=== PATIENT | female | born 1925 | race Asian ===

== ENCOUNTER 2016-04-16 11:20 | Inpatient (IN) | payer MEDICARE, MEDICAID ==
[~2016-04-16] VITALS: Ht 154.9 cm; Wt 61.4 kg
[~2016-04-16 11:20] MED LIST: BISA10SU8 PR; DSSL PEG; HEPA500014 SQ; HYDR12.54 PEG; LEVA0.6319 IH; METO-323 PEG; MIRALAX PEG; MULT-248 PEG; PANT40TA PEG; VIT500LI PEG; WARF3TAB29 PO
[2016-04-16 11:51] LABS: GLUCOSE,POINT OF CARE 143 MG/DL (70-110)
[2016-04-16 12:23] LABS: BASOPHILS % (AUTO) 0.2 % (0.0-2.0); EOSINOPHILS % (AUTO) 0 % (1.0-6.0); HEMATOCRIT 32.1 % (36-46); HEMOGLOBIN 10.1 g/dL (12.0-16.0); LYMPHOCYTES # (AUTO) 1.1 K/uL (1.0-4.8); LYMPHOCYTES % (AUTO) 3.6 % (22.0-44.0); MEAN CORPUSCULAR HEMOGLOBIN 29.3 pg (26.0-34.0); MEAN CORPUSCULAR HGB CONC 31.4 G/dL (31.0-37.0); MEAN CORPUSCULAR VOLUME 93 fL (80-100); MONOCYTES # (AUTO) 2.2 K/uL (0.1-1.0); MONOCYTES % (AUTO) 7.5 % (2.0-9.0); PLATELET COUNT (AUTO) 623 K/uL (150-450); RED BLOOD CELL COUNT(AUTO) 3.44 MIL/uL (4.00-5.20); RED CELL DISTRIBUTION WIDTH 14.8 % (11.5-14.5); WHITE BLOOD COUNT (AUTO) 29.3 K/uL (4.5-11.0)
[2016-04-16 12:24] LABS: NEUTROPHILS % (AUTO) 88.7 % (40.0-70.0)
[2016-04-16 12:40] LABS: ANION GAP 4 mmol/L (8-16); CALCIUM, TOTAL 9.1 mg/dL (8.8-10.5); CARBON DIOXIDE 35 mmol/L (22-29); CHLORIDE 94 mmol/L (98-107); GLOMERULAR FILTR. RATE CALC > 60 mL/min (>60); POTASSIUM 4.5 mmol/L (3.5-5.1); SODIUM SERUM 133 mmol/L (136-145); UREA NITROGEN, BLOOD 48 mg/dL (7-18)
[2016-04-16 12:42] LABS: RBC MORPHOLOGY COMMENT ABNORMAL RBC MORPH
[2016-04-16 12:46] LABS: ALANINE AMINOTRANSFERASE 20 U/L (12-78); ALBUMIN 2.5 g/dL (3.4-5.0); ASPARTATE AMINOTRANSFERASE 30 U/L (15-37); BILIRUBIN,TOTAL 0.3 mg/dL (0.1-1.0); TOTAL PROTEIN, SERUM 7.1 g/dL (6.4-8.2)
[2016-04-16 12:48] LABS: LACTIC ACID 1.1 mmol/L (0.4-2.0)
[2016-04-16] MEDS ORDERED: CefTRIAXone 1 GM/DEXTROSE 50 ML IV ONE (13:30)
[2016-04-16] MEDS ORDERED: AZITHROMYCIN 500 MG/NS 250 ML IV ONE (13:30)
[2016-04-16] MEDS ORDERED: FUROSEMIDE 20 MG/2 ML VIAL IVP ONE (13:30)
[2016-04-16 16:41] VITALS: BP 150/78
[2016-04-16 18:42] LABS: ABG A-A DIFF O2 16.8 mmHg (10-20.0); ABG BASE EXCESS 5.8 mmol/L (-2.0-3.0); ABG HCO3 28.4 mmol/L (22.0-26.0); ABG OXYHEMOGLOBIN 94.1 % (94.0-100.0); ABG PCO2 62 mmHg (35-45); ABG PH 7.331 (7.35-7.450); TEMPERATURE, FAHRENHEIT, BG 98.2 FAHREN (96.0-98.6)
[2016-04-16 18:43] LABS: ALLEN TEST, BLOOD GAS POS
[2016-04-16] MEDS ORDERED: MORPHINE SULFATE 4 MG/ML SYRINGE IVP PRN (18:45)
[2016-04-16] MEDS ORDERED: ZOLPIDEM TARTRATE 5 MG TABLET PEG PRN (18:45)
[2016-04-16] MEDS ORDERED: IPRATROPIUM BROMIDE 0.5 MG/2.5 ML NEB SOLUTION NEB PRN (18:45)
[2016-04-16] MEDS ORDERED: HYDROCODONE/ACETAMINOPHEN 5-325 MG TABLET PEG PRN (18:45)
[2016-04-16] MEDS ORDERED: MAGNESIUM HYDROXIDE SUSPENSION 30 ML UDCUP PEG PRN (18:45)
[2016-04-16] MEDS ORDERED: BISACODYL 10 MG RECTAL RECTAL SUPPOSITORY PR PRN (18:45)
[2016-04-16] MEDS ORDERED: ALBUTEROL SULFATE 2.5 MG/0.5 ML NEB SOLUTION NEB PRN (18:45)
[2016-04-16] MEDS ORDERED: ONDANSETRON HCL 4 MG/2 ML VIAL IVP PRN (18:45)
[2016-04-16 19:00] VITALS: BP 114/75
[2016-04-16] MEDS ORDERED: DEXTROSE 50%-WATER 25 GM/50 ML SYRINGE IVP PRN (19:15)
[2016-04-16 19:27] LABS: BASOPHILS % (AUTO) 0.1 % (0.0-2.0); EOSINOPHILS % (AUTO) 0 % (1.0-6.0); HEMATOCRIT 34.6 % (36-46); LYMPHOCYTES # (AUTO) 0.5 K/uL (1.0-4.8); LYMPHOCYTES % (AUTO) 1.6 % (22.0-44.0); MEAN CORPUSCULAR HEMOGLOBIN 29.6 pg (26.0-34.0); MEAN CORPUSCULAR HGB CONC 31.9 G/dL (31.0-37.0); MEAN CORPUSCULAR VOLUME 93 fL (80-100); MONOCYTES # (AUTO) 0.4 K/uL (0.1-1.0); MONOCYTES % (AUTO) 1.3 % (2.0-9.0); NEUTROPHILS # (AUTO) 29.1 K/uL (1.8-7.7); PLATELET COUNT (AUTO) 644 K/uL (150-450); RED BLOOD CELL COUNT(AUTO) 3.73 MIL/uL (4.00-5.20)
[2016-04-16 19:40] LABS: ANION GAP 6 mmol/L (8-16); CARBON DIOXIDE 36 mmol/L (22-29); CHLORIDE 94 mmol/L (98-107); GLOMERULAR FILTR. RATE CALC > 60 mL/min (>60); POTASSIUM 4.5 mmol/L (3.5-5.1); SODIUM SERUM 136 mmol/L (136-145); UREA NITROGEN, BLOOD 46 mg/dL (7-18)
[2016-04-16 19:45] LABS: ALANINE AMINOTRANSFERASE 20 U/L (12-78); ALBUMIN 2.5 g/dL (3.4-5.0); ASPARTATE AMINOTRANSFERASE 31 U/L (15-37); BILIRUBIN,TOTAL 0.2 mg/dL (0.1-1.0); TOTAL PROTEIN, SERUM 7.4 g/dL (6.4-8.2)
[2016-04-16 19:56] LABS: RBC MORPHOLOGY COMMENT ABNORMAL RBC MORPH
[2016-04-16] MEDS: METOPROLOL TARTRATE 25 MG TABLET PEG SCH (21:09)
[2016-04-16] MEDS: DOCUSATE SODIUM 100 MG CAPSULE PEG SCH (21:09)
[2016-04-16] MEDS: INSULIN DETEMIR 100 UNITS/ML SQ SCH (23:06)
[2016-04-16] MEDS: INSULIN REGULAR, HUMAN 100 UNITS/ML SQ PRN (23:07)
[2016-04-16 23:34] VITALS: BP 128/72
[2016-04-17 02:31] LABS: INFLUENZA TYPE B NEGATIVE FOR TYPE B (NEGATIVE)
[2016-04-17] MEDS ORDERED: LEVA1.25 NEB ×2 (03:08→03:10)
[2016-04-17] MEDS ORDERED: RIVA20TA PEG (03:08)
[2016-04-17] MEDS ORDERED: VIT D3 PEG (03:08)
[2016-04-17] MEDS ORDERED: INSLAN SQ (03:08)
[2016-04-17] MEDS ORDERED: MOM30 PO (03:10)
[2016-04-17] MEDS ORDERED: ACET-784 PO (03:23)
[2016-04-17] MEDS ORDERED: MUPI1OIN5 TP (03:35)
[2016-04-17] MEDS ORDERED: FE PR (03:35)
[2016-04-17] MEDS ORDERED: NYST30PO11 TP (03:35)
[2016-04-17] MEDS ORDERED: DEXT1DRO OU (03:47)
[2016-04-17 04:24] VITALS: BP 150/71
[2016-04-17] MEDS: INSULIN REGULAR, HUMAN 100 UNITS/ML SQ PRN ×3 (05:58→17:30)
[2016-04-17 07:30] LABS: EOSINOPHILS % (AUTO) 0 % (1.0-6.0); HEMATOCRIT 31.8 % (36-46); HEMOGLOBIN 10.2 g/dL (12.0-16.0); LYMPHOCYTES # (AUTO) 0.9 K/uL (1.0-4.8); LYMPHOCYTES % (AUTO) 3.6 % (22.0-44.0); MEAN CORPUSCULAR HEMOGLOBIN 29.9 pg (26.0-34.0); MEAN CORPUSCULAR HGB CONC 32.1 G/dL (31.0-37.0); MEAN CORPUSCULAR VOLUME 93 fL (80-100); MONOCYTES % (AUTO) 7.9 % (2.0-9.0); NEUTROPHILS # (AUTO) 22.1 K/uL (1.8-7.7); PLATELET COUNT (AUTO) 576 K/uL (150-450); RED BLOOD CELL COUNT(AUTO) 3.42 MIL/uL (4.00-5.20); RED CELL DISTRIBUTION WIDTH 14.6 % (11.5-14.5)
[2016-04-17 07:33] LABS: NEUTROPHILS % (AUTO) 88.5 % (40.0-70.0)
[2016-04-17 07:38] VITALS: BP 142/70
[2016-04-17 07:42] LABS: ABG A-A DIFF O2 34.2 mmHg (10-20.0); ABG BASE EXCESS 7.4 mmol/L (-2.0-3.0); ABG HCO3 30.6 mmol/L (22.0-26.0); ABG OXYHEMOGLOBIN 96.6 % (94.0-100.0); ABG PCO2 43 mmHg (35-45); ABG PH 7.476 (7.35-7.450)
[2016-04-17 07:44] LABS: IPAP, BG 16 cm H2O
[2016-04-17 08:18] LABS: ALANINE AMINOTRANSFERASE 19 U/L (12-78); ALBUMIN 2.3 g/dL (3.4-5.0); ANION GAP 5 mmol/L (8-16); ASPARTATE AMINOTRANSFERASE 27 U/L (15-37); BILIRUBIN,TOTAL 0.2 mg/dL (0.1-1.0); CALCIUM, TOTAL 8.5 mg/dL (8.8-10.5); CARBON DIOXIDE 36 mmol/L (22-29); CHLORIDE 96 mmol/L (98-107); CREATININE 0.79 mg/dL (0.60-1.30); GLOMERULAR FILTR. RATE CALC > 60 mL/min (>60); POTASSIUM 4.1 mmol/L (3.5-5.1); RBC MORPHOLOGY COMMENT ABNORMAL RBC MORPH; SODIUM SERUM 137 mmol/L (136-145); TOTAL PROTEIN, SERUM 6.6 g/dL (6.4-8.2); UREA NITROGEN, BLOOD 49 mg/dL (7-18)
[2016-04-17 08:21] LABS: PROCALCITONIN (PCT) 0.48 ng/mL (<0.50)
[2016-04-17] MEDS: DOCUSATE SODIUM 100 MG CAPSULE PEG SCH ×2 (09:00→20:45)
[2016-04-17] MEDS: METOPROLOL TARTRATE 25 MG TABLET PEG SCH ×2 (10:25→20:45)
[2016-04-17] MEDS: PANTOPRAZOLE SODIUM 40 MG/VIAL IVP SCH (10:27)
[2016-04-17 11:49] VITALS: BP 165/98
[2016-04-17] MEDS: CefTRIAXone 1 GM/DEXTROSE 50 ML IV SCH ×2 (13:00→14:32)
[2016-04-17] MEDS ORDERED: SODIUM CHLORIDE 0.9% 250 ML IV ONE (13:08)
[2016-04-17] MEDS: HydrALAZINE HCL 20 MG/ML VIAL IVP PRN ×2 (13:12→21:55)
[2016-04-17 14:30] VITALS: BP 169/95
[2016-04-17] MEDS: AZITHROMYCIN 500 MG/NS 250 ML IV SCH (14:42)
[2016-04-17] MEDS: ACETAMINOPHEN 650 MG/20.3 ML SOLUTION UDCUP PEG PRN (14:42)
[2016-04-17] MEDS ORDERED: DIGOXIN 250 MCG/ML 2 ML AMP IVP ONE (15:15)
[2016-04-17] MEDS ORDERED: SODIUM CHLORIDE 0.9% 500 ML IV ONE (15:45)
[2016-04-17 16:00] VITALS: BP 155/86
[2016-04-17 18:06] LABS: GLUCOSE COMMENT 1 Received Meds; GLUCOSE,POINT OF CARE 195 MG/DL (70-110)
[2016-04-17 18:17] LABS: GLUCOSE COMMENT 1 Received Meds; GLUCOSE,POINT OF CARE 200 MG/DL (70-110)
[2016-04-17 18:17] LABS: GLUCOSE COMMENT 1 Received Meds; GLUCOSE,POINT OF CARE 191 MG/DL (70-110)
[2016-04-17 18:17] LABS: GLUCOSE,POINT OF CARE 151 MG/DL (70-110)
[2016-04-17 20:00] VITALS: BP 156/77
[2016-04-17] MEDS ORDERED: INFLUENZA VIRUS VACCINE QVS 2016-17 (3YR+)/PF 60 MCG/0.5 ML SYRINGE IM ONE (20:00)
[2016-04-17] MEDS: INSULIN DETEMIR 100 UNITS/ML SQ SCH (20:45)
[2016-04-17] MEDS ORDERED: FUROSEMIDE 20 MG/2 ML VIAL IVP SCH (21:00)
[2016-04-18] VITALS: BP 109/37
[2016-04-18] MEDS: INSULIN REGULAR, HUMAN 100 UNITS/ML SQ PRN ×5 (00:03→23:24)
[2016-04-18 01:21] LABS: GLUCOSE,POINT OF CARE 156 MG/DL (70-110)
[2016-04-18 01:21] LABS: GLUCOSE COMMENT 1 Received Meds; GLUCOSE,POINT OF CARE 169 MG/DL (70-110)
[2016-04-18 02:01] LABS: GLUCOSE,POINT OF CARE 172 MG/DL (70-110)
[2016-04-18 04:00] VITALS: BP 145/74
[2016-04-18 05:42] LABS: BASOPHILS % (AUTO) 0.1 % (0.0-2.0); EOSINOPHILS % (AUTO) 0 % (1.0-6.0); HEMATOCRIT 33.2 % (36-46); HEMOGLOBIN 10.5 g/dL (12.0-16.0); LYMPHOCYTES # (AUTO) 0.7 K/uL (1.0-4.8); LYMPHOCYTES % (AUTO) 3.5 % (22.0-44.0); MEAN CORPUSCULAR HEMOGLOBIN 29.6 pg (26.0-34.0); MEAN CORPUSCULAR HGB CONC 31.5 G/dL (31.0-37.0); MEAN CORPUSCULAR VOLUME 94 fL (80-100); MONOCYTES # (AUTO) 1.2 K/uL (0.1-1.0); MONOCYTES % (AUTO) 5.9 % (2.0-9.0); NEUTROPHILS # (AUTO) 18.5 K/uL (1.8-7.7); PLATELET COUNT (AUTO) 580 K/uL (150-450); RED BLOOD CELL COUNT(AUTO) 3.53 MIL/uL (4.00-5.20); RED CELL DISTRIBUTION WIDTH 14.9 % (11.5-14.5); WHITE BLOOD COUNT (AUTO) 20.4 K/uL (4.5-11.0)
[2016-04-18 05:49] LABS: NEUTROPHILS % (AUTO) 90.5 % (40.0-70.0)
[2016-04-18 06:10] LABS: ALANINE AMINOTRANSFERASE 18 U/L (12-78); ALBUMIN 2.2 g/dL (3.4-5.0); ANION GAP 5 mmol/L (8-16); ASPARTATE AMINOTRANSFERASE 26 U/L (15-37); BILIRUBIN,TOTAL 0.2 mg/dL (0.1-1.0); CALCIUM, TOTAL 8.2 mg/dL (8.8-10.5); CARBON DIOXIDE 36 mmol/L (22-29); CHLORIDE 102 mmol/L (98-107); CREATININE 0.65 mg/dL (0.60-1.30); GLOMERULAR FILTR. RATE CALC > 60 mL/min (>60); POTASSIUM 3.6 mmol/L (3.5-5.1); SODIUM SERUM 143 mmol/L (136-145); TOTAL PROTEIN, SERUM 6.5 g/dL (6.4-8.2); UREA NITROGEN, BLOOD 40 mg/dL (7-18)
[2016-04-18 06:21] LABS: GLUCOSE COMMENT 1 Received Meds; GLUCOSE,POINT OF CARE 203 MG/DL (70-110)
[2016-04-18 08:00] VITALS: BP 135/71
[2016-04-18] MEDS: DOCUSATE SODIUM 100 MG CAPSULE PEG SCH ×2 (08:24→21:31)
[2016-04-18] MEDS: METOPROLOL TARTRATE 25 MG TABLET PEG SCH ×2 (08:24→21:31)
[2016-04-18] MEDS: PANTOPRAZOLE SODIUM 40 MG/VIAL IVP SCH (08:24)
[2016-04-18] MEDS: FUROSEMIDE 20 MG/2 ML VIAL IVP SCH (08:25)
[2016-04-18 08:34] LABS: DIGOXIN 0.42 ng/mL (0.90-2.00)
[2016-04-18 11:12] LABS: ABG A-A DIFF O2 37.8 mmHg (10-20.0); ABG BASE EXCESS 11.9 mmol/L (-2.0-3.0); ABG HCO3 34.6 mmol/L (22.0-26.0); ABG OXYHEMOGLOBIN 95.9 % (94.0-100.0); ABG PCO2 43 mmHg (35-45); ABG PH 7.523 (7.35-7.450); ALLEN TEST, BLOOD GAS PASS; TEMPERATURE, FAHRENHEIT, BG 98.6 FAHREN (96.0-98.6)
[2016-04-18 12:00] VITALS: BP 162/85
[2016-04-18] MEDS: CefTRIAXone 1 GM/DEXTROSE 50 ML IV SCH (12:47)
[2016-04-18] MEDS ORDERED: SODIUM CHLORIDE 0.9% 250 ML IV ONE (12:51)
[2016-04-18 12:58] LABS: LACTATE DEHYDROGENASE 619 U/L (81-234)
[2016-04-18 13:17] LABS: INR 1.1 (0.9-1.1); PROTHROMBIN TIME 11.4 SEC (9.4-11.6)
[2016-04-18] MEDS: AZITHROMYCIN 500 MG/NS 250 ML IV SCH (14:03)
[2016-04-18 15:46] LABS: GLUCOSE COMMENT 1 Received Meds; GLUCOSE,POINT OF CARE 176 MG/DL (70-110)
[2016-04-18 16:00] VITALS: BP 173/75
[2016-04-18 20:00] VITALS: BP 166/84
[2016-04-18] MEDS: INSULIN DETEMIR 100 UNITS/ML SQ SCH (21:30)
[2016-04-18] MEDS: HydrALAZINE HCL 20 MG/ML VIAL IVP PRN (22:34)
[2016-04-19] VITALS: BP 142/61
[2016-04-19] MEDS: ACETAMINOPHEN 650 MG/20.3 ML SOLUTION UDCUP PEG PRN (00:33)
[2016-04-19 04:00] VITALS: BP 156/67
[2016-04-19] MEDS: INSULIN REGULAR, HUMAN 100 UNITS/ML SQ PRN (04:53)
[2016-04-19 05:36] LABS: GLUCOSE,POINT OF CARE 190 MG/DL (70-110)
[2016-04-19 05:36] LABS: ALANINE AMINOTRANSFERASE 31 U/L (12-78); ALBUMIN 2.2 g/dL (3.4-5.0); ANION GAP 6 mmol/L (8-16); ASPARTATE AMINOTRANSFERASE 37 U/L (15-37); BILIRUBIN,TOTAL 0.2 mg/dL (0.1-1.0); CALCIUM, TOTAL 8.3 mg/dL (8.8-10.5); CARBON DIOXIDE 36 mmol/L (22-29); CHLORIDE 106 mmol/L (98-107); GLOMERULAR FILTR. RATE CALC > 60 mL/min (>60); POTASSIUM 3.1 mmol/L (3.5-5.1); SODIUM SERUM 148 mmol/L (136-145); TOTAL PROTEIN, SERUM 6.3 g/dL (6.4-8.2); UREA NITROGEN, BLOOD 35 mg/dL (7-18)
[2016-04-19 06:01] LABS: GLUCOSE,POINT OF CARE 176 MG/DL (70-110)
[2016-04-19 06:01] LABS: GLUCOSE COMMENT 1 Received Meds; GLUCOSE,POINT OF CARE 165 MG/DL (70-110)
[2016-04-19 06:01] LABS: GLUCOSE,POINT OF CARE 187 MG/DL (70-110)
[2016-04-19 06:11] LABS: BASOPHILS % (AUTO) 0.3 % (0.0-2.0); EOSINOPHILS % (AUTO) 0.1 % (1.0-6.0); HEMATOCRIT 34.5 % (36-46); HEMOGLOBIN 10.8 g/dL (12.0-16.0); LYMPHOCYTES # (AUTO) 0.8 K/uL (1.0-4.8); LYMPHOCYTES % (AUTO) 4.3 % (22.0-44.0); MEAN CORPUSCULAR HEMOGLOBIN 29.6 pg (26.0-34.0); MEAN CORPUSCULAR HGB CONC 31.2 G/dL (31.0-37.0); MEAN CORPUSCULAR VOLUME 95 fL (80-100); MONOCYTES # (AUTO) 1.9 K/uL (0.1-1.0); MONOCYTES % (AUTO) 10.7 % (2.0-9.0); NEUTROPHILS # (AUTO) 14.9 K/uL (1.8-7.7); NEUTROPHILS % (AUTO) 84.6 % (40.0-70.0); PLATELET COUNT (AUTO) 544 K/uL (150-450); RED BLOOD CELL COUNT(AUTO) 3.63 MIL/uL (4.00-5.20); RED CELL DISTRIBUTION WIDTH 15.1 % (11.5-14.5); WHITE BLOOD COUNT (AUTO) 17.7 K/uL (4.5-11.0)
[2016-04-19] MEDS ORDERED: POTASSIUM CHLORIDE 20 MEQ ER TABLET PO PRN (07:45)
[2016-04-19 08:00] VITALS: BP 142/66
[2016-04-19] MEDS: DOCUSATE SODIUM 100 MG CAPSULE PEG SCH ×3 (09:00→20:58)
[2016-04-19] MEDS: METOPROLOL TARTRATE 25 MG TABLET PEG SCH ×3 (09:00→20:59)
[2016-04-19] MEDS: FUROSEMIDE 20 MG/2 ML VIAL IVP SCH (09:02)
[2016-04-19] MEDS: PANTOPRAZOLE SODIUM 40 MG/VIAL IVP SCH (09:02)
[2016-04-19] MEDS ORDERED: SODIUM CHLORIDE 0.9% 250 ML IV ONE (10:44)
[2016-04-19] MEDS: POTASSIUM CHL 10 MEQ/WATER 50 ML IV PRN ×3 (10:45→14:29)
[2016-04-19] MEDS: HydrALAZINE HCL 20 MG/ML VIAL IVP PRN (11:35)
[2016-04-19 12:00] VITALS: BP 140/74
[2016-04-19] MEDS: CefTRIAXone 1 GM/DEXTROSE 50 ML IV SCH (13:01)
[2016-04-19 13:18] LABS: ORGANISM ID Not indicated.
[2016-04-19] MEDS: AZITHROMYCIN 500 MG/NS 250 ML IV SCH (14:29)
[2016-04-19 16:00] VITALS: BP 135/61
[2016-04-19] MEDS ORDERED: VITAD400 PO (16:56)
[2016-04-19] MEDS ORDERED: 0.9% SODIUM CHLORIDE 10 ML SYRINGE IVP PRN (17:00)
[2016-04-19 20:00] VITALS: BP 134/89
[2016-04-19] MEDS: INSULIN DETEMIR 100 UNITS/ML SQ SCH (21:00)
[2016-04-20] VITALS (8 sets, daily range): BP systolic 112–168; BP diastolic 55–87
[2016-04-20 01:51] LABS: GLUCOSE COMMENT 1 Received Meds; GLUCOSE,POINT OF CARE 161 MG/DL (70-110)
[2016-04-20 01:51] LABS: GLUCOSE,POINT OF CARE 122 MG/DL (70-110)
[2016-04-20 01:51] LABS: GLUCOSE,POINT OF CARE 97 MG/DL (70-110)
[2016-04-20 01:51] LABS: GLUCOSE,POINT OF CARE 86 MG/DL (70-110)
[2016-04-20 05:16] LABS: GLUCOSE,POINT OF CARE 92 MG/DL (70-110)
[2016-04-20 05:40] LABS: BASOPHILS # (AUTO) 0.03 K/uL (0.00-0.20); BASOPHILS % (AUTO) 0.2 % (0.0-2.0); EOSINOPHILS # (AUTO) 0.08 K/uL (0.00-0.70); EOSINOPHILS % (AUTO) 0.41 % (1.0-6.0); HEMATOCRIT 36.6 % (36-46); HEMOGLOBIN 11.6 g/dL (12.0-16.0); LYMPHOCYTES % (AUTO) 4.8 % (22.0-44.0); MEAN CORPUSCULAR HEMOGLOBIN 30.1 pg (26.0-34.0); MEAN CORPUSCULAR HGB CONC 31.7 G/dL (31.0-37.0); MEAN CORPUSCULAR VOLUME 95 fL (80-100); MONOCYTES # (AUTO) 1.9 K/uL (0.1-1.0); MONOCYTES % (AUTO) 9.3 % (2.0-9.0); PLATELET COUNT (AUTO) 518 K/uL (150-450); RED BLOOD CELL COUNT(AUTO) 3.85 MIL/uL (4.00-5.20); RED CELL DISTRIBUTION WIDTH 15.2 % (11.5-14.5)
[2016-04-20 06:38] LABS: NEUTROPHILS % (AUTO) 85.4 % (40.0-70.0)
[2016-04-20 06:55] LABS: ALANINE AMINOTRANSFERASE 28 U/L (12-78); ALBUMIN 2.4 g/dL (3.4-5.0); ANION GAP 5 mmol/L (8-16); ASPARTATE AMINOTRANSFERASE 31 U/L (15-37); BILIRUBIN,TOTAL 0.3 mg/dL (0.1-1.0); CALCIUM, TOTAL 8.5 mg/dL (8.8-10.5); CARBON DIOXIDE 37 mmol/L (22-29); CHLORIDE 111 mmol/L (98-107); CREATININE 0.71 mg/dL (0.60-1.30); GLOMERULAR FILTR. RATE CALC > 60 mL/min (>60); POTASSIUM 3.7 mmol/L (3.5-5.1); SODIUM SERUM 153 mmol/L (136-145); TOTAL PROTEIN, SERUM 6.5 g/dL (6.4-8.2); UREA NITROGEN, BLOOD 34 mg/dL (7-18)
[2016-04-20] MEDS: PANTOPRAZOLE SODIUM 40 MG/VIAL IVP SCH (09:55)
[2016-04-20] MEDS: FUROSEMIDE 20 MG/2 ML VIAL IVP SCH (09:55)
[2016-04-20] MEDS ORDERED: DEXTROSE 5%-WATER 1,000 ML IV ONE (10:15)
[2016-04-20] MEDS ORDERED: MORPHINE SULFATE 2 MG/ML SYRINGE IVP PRN (12:00)
[2016-04-20] MEDS ORDERED: LORazepam 2 MG/ML VIAL IVP PRN (12:00)
[2016-04-20] MEDS ORDERED: DEXTROSE 5%-0.45% SODIUM CHL 1,000 ML IV SCH (19:30)
[2016-04-20] MEDS: DEXTROSE 5%-0.45% SODIUM CHL 1,000 ML IV SCH (19:57)
[2016-04-20] MEDS ORDERED: METOPROLOL TARTRATE 5 MG/5 ML VIAL IVP SCH (21:00)
[2016-04-21 04:32] VITALS: BP 121/76
[2016-04-21 07:00] VITALS: BP 142/74
[2016-04-21] MEDS: AZITHROMYCIN 500 MG/NS 250 ML IV SCH (10:55)
[2016-04-21 11:44] VITALS: BP 178/87
[2016-04-21] MEDS: CefTRIAXone 1 GM/DEXTROSE 50 ML IV SCH (15:34)
[2016-04-21] MEDS: DEXTROSE 5%-0.45% SODIUM CHL 1,000 ML IV SCH (15:35)
[2016-04-21] MEDS: NITROGLYCERIN 2% (1 GM=INCH) PACKET TP SCH ×2 (15:43→23:09)
[2016-04-21 15:51] VITALS: BP 118/59
[2016-04-21 20:00] VITALS: BP 143/82
[2016-04-22 00:11] VITALS: BP 148/77
[2016-04-22 05:31] VITALS: BP 150/77
[2016-04-22 07:24] VITALS: BP 126/79
[2016-04-22] MEDS: DEXTROSE 5%-0.45% SODIUM CHL 1,000 ML IV SCH (08:07)
[2016-04-22] MEDS: AZITHROMYCIN 500 MG/NS 250 ML IV SCH (08:08)
[2016-04-22] MEDS: NITROGLYCERIN 2% (1 GM=INCH) PACKET TP SCH ×2 (08:08→16:22)
[2016-04-22] MEDS: CefTRIAXone 1 GM/DEXTROSE 50 ML IV SCH (11:21)
[2016-04-22 11:38] VITALS: BP 115/51
[2016-04-22 15:25] VITALS: BP 118/59
[2016-04-22] MEDS ORDERED: NTP TD (18:19)
[2016-04-22 20:15] VITALS: BP 147/64
== END 2016-04-22 21:05 | DRG 871 ==
LOC: EMS 11:23 → 5N 15:19 → ICU 04-17 15:26 → 6N 04-20 13:20
PROVIDERS: ADMIT Hospitalist; ATTEND Hospitalist
PROC: 5A09457 Assistance with Respiratory Ventilation, 24-96 Consecutive Hours, Continuous Positive Airway Pressure (ICD-10-PCS; principal; 2016-04-16)
DX: A41.9 Sepsis, unspecified organism (principal); G93.40 Encephalopathy, unspecified; J96.02 Acute respiratory failure with hypercapnia; J18.9 Pneumonia, unspecified organism; I50.41 Acute combined systolic (congestive) and diastolic (congestive) heart failure; J44.0 Chronic obstructive pulmonary disease with (acute) lower respiratory infection; C79.51 Secondary malignant neoplasm of bone; E87.0 Hyperosmolality and hypernatremia; E87.1 Hypo-osmolality and hyponatremia; E11.9 Type 2 diabetes mellitus without complications; D64.9 Anemia, unspecified; J44.9 Chronic obstructive pulmonary disease, unspecified; I12.9 Hypertensive chronic kidney disease with stage 1 through stage 4 chronic kidney disease, or unspecified chronic kidney disease; F03.90 Unspecified dementia, unspecified severity, without behavioral disturbance, psychotic disturbance, mood disturbance, and anxiety; C80.1 Malignant (primary) neoplasm, unspecified; Z66 Do not resuscitate; Z51.5 Encounter for palliative care; M81.0 Age-related osteoporosis without current pathological fracture; M19.90 Unspecified osteoarthritis, unspecified site; J45.909 Unspecified asthma, uncomplicated; I69.320 Aphasia following cerebral infarction; I48.2 Chronic atrial fibrillation; Z93.1 Gastrostomy status; Z79.01 Long term (current) use of anticoagulants; Z79.899 Other long term (current) drug therapy
CPT/HCPCS: 32555; 70460; 71250; 76942; 82805; 82962; 83605; 83615; 83735; 84132; 84145; 87040; 87081; 87086; 87449; 87804; 87899; 93005; 93306; 94660; 94799; 96365; 96368; 96375; 99285; C9113; J0360; J0456; J0696; J1160; J1940; J2270; J3480; J7040; J7050